=== PATIENT | female | born 1960 | race Caucasian/White ===

== ENCOUNTER → 2017-01-06 | Outpatient (CLI) | payer BC ==
[~2017-01-06] MED LIST: ZESTRIL10 MG PO
== END ==
LOC: US 09:00
DX: R74.8 Abnormal levels of other serum enzymes (principal); K76.0 Fatty (change of) liver, not elsewhere classified
CPT/HCPCS: 76705

== ENCOUNTER 2017-04-04 07:31 | Emergency (ER) | payer BC | END 2017-04-04 08:35 | disposition home or self-care (01) | LOC: ER1 07:31 | DX: M54.5 Low back pain (principal); G89.29 Other chronic pain | CPT/HCPCS: 99283 ==

== ENCOUNTER → 2021-07-06 | Outpatient (CLI) | payer MEDICARE, BC | LOC: US 06-29 09:30 → EDBD 06-29 09:30 → KOH-I 08:00 | DX: K76.0 Fatty (change of) liver, not elsewhere classified (principal) | CPT/HCPCS: 76700 ==

== ENCOUNTER → 2021-12-26 | Outpatient (CLI) | payer MEDICARE, BC | LOC: HEART 5 13:00 | DX: R00.0 Tachycardia, unspecified (principal) | CPT/HCPCS: 93306 ==

== ENCOUNTER → 2022-01-07 | Outpatient (CLI) | payer MEDICARE, BC | LOC: KOH-I 15:03 | DX: E04.2 Nontoxic multinodular goiter (principal) | CPT/HCPCS: 76536 ==

== ENCOUNTER → 2022-01-23 | Outpatient (CLI) | payer MEDICARE, BC | LOC: KOH-I 13:30 | DX: R60.0 Localized edema (principal) | CPT/HCPCS: 93971 ==

== ENCOUNTER → 2022-05-28 | Outpatient (CLI) | payer MEDICARE, BC | LOC: HEART 5 13:10 | DX: R05.9 Cough, unspecified (principal); R06.02 Shortness of breath | CPT/HCPCS: 94060; 94729; 95012 ==

== ENCOUNTER 2022-05-31 11:44 | Emergency (ER) | payer MEDICARE, BC ==
[2022-05-31 12:54] LABS: HEMOGLOBIN 13.6 gm/dl (12.3-15.3); RED BLOOD COUNT 4.22 M/UL (4.00-5.10); WHITE BLOOD COUNT 9.4 K/UL (4.5-11.0)
[2022-05-31 13:30] LABS: BUN/CREATININE RATIO 29 (0-10)
== END 2022-05-31 18:10 | disposition home or self-care (01) ==
LOC: ER1 11:44
PROVIDERS: Physician Assistant Medical
DX: R07.89 Other chest pain (principal); R60.0 Localized edema; I11.0 Hypertensive heart disease with heart failure; I50.9 Heart failure, unspecified; E78.5 Hyperlipidemia, unspecified; J45.909 Unspecified asthma, uncomplicated; Z90.710 Acquired absence of both cervix and uterus; Z88.6 Allergy status to analgesic agent; Z88.8 Allergy status to other drugs, medicaments and biological substances; Z79.899 Other long term (current) drug therapy; Z91.040 Latex allergy status
CPT/HCPCS: 71045; 80053; 82550; 82553; 83880; 84484; 85025; 93005; 99285

== ENCOUNTER → 2022-06-12 | Outpatient (CLI) | payer MEDICARE, BC | LOC: KOH-I 11:15 | DX: R93.7 Abnormal findings on diagnostic imaging of other parts of musculoskeletal system (principal); R50.9 Fever, unspecified; M50.321 Other cervical disc degeneration at C4-C5 level | CPT/HCPCS: 70220; 71046; 72141 ==